=== PATIENT | female | born 1955 | race Caucasian/White ===

== ENCOUNTER 2024-04-24 13:15 | Outpatient (CLI) | payer MEDICARE, OTHER ==
--- NOTE | 2024-04-25 12:49 | XRAY Report ---
Finger(s) LT HISTORY: 68 years of age, FINGER PAIN, LEFT TECHNIQUE: Finger(s) LT COMPARISON: None. FINDINGS/IMPRESSION: 3 mm radiodensity in the soft tissue ulnar to the fourth proximal phalanx, concerning for retained ra diopaque foreign body. Status post resection of the trapezium. Widening of scapholunate interval with proximal migration of the capitate, consistent with scapholunate advanced collapse. Moderate degenerative changes of the ra diocarpal joint. Ossification about the ulnar styloid, representing prior injury. No acute fracture o r dislocation. Reviewed by: Marion Cruz MD on 04/25/2024 12:47 PM PDT Approved by: Marion Cruz MD on 04/25/2024 12:47 PM PDT Station ID: [id number]
== END 2024-04-24 13:30 | disposition home or self-care (01) ==
LOC: DI.N 13:15
PROVIDERS: ATTEND Physician Assistant Medical
DX: M19.031 Primary osteoarthritis, right wrist (principal); M79.645 Pain in left finger(s)